=== PATIENT | male | born 1960 | race Caucasian/White ===

== ENCOUNTER → 2021-03-05 | Outpatient (CLI) | payer OTHER ==
[~2021-03-05] MED LIST: ACETAMINOPHEN500 MG PO; ADVIL200 M1 PO; CATAPRES0.2 MG PO; COLACE100 MG PO; MIRALAX17 GM PO; TRAZODONE HCL50 MG PO; ULTRAM50 MG PO; XARELTO10 MG PO; ZESTRIL30 MG PO
[2021-03-05 11:52] LABS: HEMATOCRIT 43.3 % (42.0-52.0); MCH 33.7 pg (26.0-34.0); MCHC 34.6 g/dL (28.0-37.0); MCV 97.5 fL (80.0-100.0); RBC 4.44 mil/uL (4.50-6.00); WBC 9.1 thou/uL (4.0-11.0)
[2021-03-05 11:54] LABS: URINE BLOOD NEGATIVE (Negative); URINE CLARITY CLEAR; URINE GLUCOSE-RANDOM* NEGATIVE (Negative); URINE KETONES TRACE (Negative); URINE LEUKOCYTES-REFLEX NEGATIVE (Negative); URINE NITRITE-REFLEX NEGATIVE (Negative); URINE PROTEIN (DIPSTICK) TRACE (Negative); URINE SPECIFIC GRAVITY >= 1.030 (1.005-1.035); URINE UROBILINOGEN 0.2 E.U./dl (0.2-1.0)
[2021-03-05 11:58] LABS: ICTOTEST (BILI CONFIRMATORY) Negative (Negative); URINE BILIRUBIN NEGATIVE (Negative); URINE COLOR AMBER
[2021-03-05 12:01] LABS: ALBUMIN 3.9 g/dL (3.4-5.0); CALCIUM 9.4 mg/dL (8.5-10.1); CREATININE 0.8 mg/dL (0.7-1.3); POTASSIUM 4.3 mmol/L (3.5-5.1)
[2021-03-05 12:06] LABS: INR 0.93; PROTIME 10.2 Seconds (10.5-12.1)
--- NOTE | 2021-03-05 12:18 | EKG ---
[address] [place] [address] ELECTROCARDIOGRAM REPORT Name: MYRTLE HALLMAN [facility] #: [facility]tl[facility] InstituteLesly#: [id number] Admission: 03/05/21 Attend Phys: Rusty Montgomery MD Discharge: Date of : 64 Report #: [id number] [facility] Test Date: 2021-03-05 Test Time: 11:22:29 Pat Name: MYRTLE HALLMAN Department: Room: Gender: Independent Living Advisor: Lul ARREDONDO : 1960 Requested By: Rusty Montgomery Order Number: [id number] MD: Avery Garcia Measurements Intervals [place] Rate: 69 P: 43 MI: 156 QRS: -1 QRSD: 102 T: 51 QT: 393 QTc: 421 Interpretive Statements Sinus rhythm RSR' in V1 or V2, probably normal variant No previous ECG available for comparison Electronically Signed On 03-05-2021 12:18:16 CDT by Avery Garcia [email or web address] <ELECTRONICALLY SIGNED> By: Avery Garcia MD, [facility] 03/05/21 1218 1122 21 Avery Garcia MD, FACC /EPI
== END ==
LOC: PAC 10:11
PROVIDERS: ATTEND Orthopaedic Surgery
DX: Z01.812 Encounter for preprocedural laboratory examination (principal); Z01.810 Encounter for preprocedural cardiovascular examination; M87.052 Idiopathic aseptic necrosis of left femur

== ENCOUNTER 2021-03-11 06:06 | Observation (INO) | payer OTHER ==
[~2021-03-11] VITALS: Ht 177.8 cm; Wt 106.6 kg
[~2021-03-11 06:06] MED LIST changes: -COLACE100 MG PO; -MIRALAX17 GM PO; -XARELTO10 MG PO; -ZESTRIL30 MG PO
[2021-03-11 07:24] VITALS: BP 153/75
[2021-03-11 10:58] VITALS: BP 120/74
--- NOTE | 2021-03-11 13:06 | NUR ---
ASSUMED PT CARE AT 1030 FROM PACU. PT IS ALERT & ORIENTED X4. PT HAS IV SITE ON L FA SALINE LOCKED. PT HAD L TOTAL HIP REPLACEMENT TODAY. PT HAS LURDES DRESSING ON L HIP, ICE BAG, HUSSAIN HOSES, AND SCD. FINISHED ADMISSION. PT STATED THAT HE USES CANE AND WALKER AT HOME. PT C/O OF PAIN AND GIVEN PAIN MEDICATION PER PT REQUEST. PT DENIES NAUSEA AND VOMITING DURING THE SHIFT. PT TOLERATED DIET AND MEDICATION WELL. PT ON THE BED READING BOOK. BED ON THE LOWEST POSITION, SIDE RAILS UP, CALL LIGHT WITHIN REACH. WILL CONTINUE TO MONITOR PT. FOLLOW POC.
[2021-03-11 16:19] VITALS: BP 126/82
[2021-03-11 20:14] VITALS: BP 123/63
[2021-03-11] MEDS ORDERED: ZESTRIL30 MG PO (22:35)
[2021-03-12] VITALS: BP 130/70
--- NOTE | 2021-03-12 01:03 | NUR ---
ASSESSED AT START OF SHIFT. PT A&OX4. UP WITH ASSISTX1 TO THE BATHROOM. URINAL BY BEDSIDE. IV INTACT AND FLUIDS INFUSING. OXYCODONE GIVEN FOR HIP PAIN 07/04 LURDES DRESSING AND TEDHOSE INTACT. ICE PACK PLACED FOR COMFORT. FALL PREC IN PLACE. INCENTIVE SPIROMETER ENCOURAGED. PT ON 2L OF O2. DENIES N/V. CLEAR LUNGS SOUNDS. HEMOVAC INTACT WILL CONT TO MONITOR.
[2021-03-12 05:00] LABS: HEMATOCRIT 35.9 % (42.0-52.0); HEMOGLOBIN 12.3 gm/dL (14.0-18.0); MCH 33.9 pg (26.0-34.0); MCHC 34.3 g/dL (28.0-37.0); MCV 98.8 fL (80.0-100.0); RBC 3.63 mil/uL (4.50-6.00); RDW 13.7 % (10.5-14.5); WBC 12.2 thou/uL (4.0-11.0)
[2021-03-12 07:55] VITALS: BP 113/71
[2021-03-12 08:14] LABS: CALCIUM 8.5 mg/dL (8.5-10.1); CREATININE 0.8 mg/dL (0.7-1.3); MAGNESIUM 2.1 mg/dL (1.8-2.4); POTASSIUM 3.9 mmol/L (3.5-5.1)
--- NOTE | 2021-03-12 08:16 | O ---
[facility] [address] [place] [address] OPERATIVE REPORT Name: MYRTLE HALLMAN Room #: 448-P [facility] M.Breann#: [id number] Admission: 03/11/21 Attend Phys: Rusty Montgomery MD Discharge: Date of : 64 Report #: [id number] THIS REPORT FOR: cc: Cameron Coyle MD, Michael D. MD [place], David J. MD ~ DOC #: [id number] Rusty Montgomery MD DATE OF SERVICE: 03/11/2021 PREOPERATIVE DIAGNOSES: Avascular necrosis and end-stage degenerative arthritis, left hip. POSTOPERATIVE DIAGNOSES: Avascular necrosis and end-stage degenerative arthritis, left hip. PROCEDURE: Left total hip arthroplasty. SURGEON: Rusty Montgomery MD INDICATIONS: This 60-year-old gentleman has a history of alcohol abuse and tobacco abuse. He has MRI evidence of avascular necrosis in both hips. The left shows a collapse and deformity. He has elected to go ahead with left total hip replacement. DESCRIPTION OF PROCEDURE: The patient was taken to the operating room where he was placed under general anesthesia. Prophylactic intravenous antibiotics were administered. He was turned to the right lateral decubitus position. The left hip, thigh and leg were meticulously prepped and draped. A slightly curving posterolateral skin incision was made centered over the greater trochanter. This was carried through fascia and the gluteus was spread bluntly. The short external rotators and capsule were taken down and preserved. The hip was dislocated posteriorly. Marked degenerative change with fragmentation of the head was noted consistent with AVN. Femoral neck osteotomy was performed. The canal was prepared with reamers and hand broaches using the Murray and Nephew hip system. A size 16 stem seemed to fit most appropriately. Good exposure was established at the acetabulum, which was sequentially reamed, gradually advancing to 56 mm in diameter. A Murray and Nephew Stiktite 3-hole shell was then inserted using the 56 mm diameter size. This was positioned in alignment with his true acetabulum, placing this in about 45 degrees off of vertical and about 20 degrees of anteversion. It seated nicely and appeared to be secure. Three additional cancellous screws were placed through the apical holes engaging good periacetabular bone adding to stability. A 40 mm polyethylene liner was then inserted placing the 20-degree elevated rim at the 10 o'clock posterior position. This seated nicely and appeared to be secure. The Murray and Nephew size 16 Synergy porous femoral stem was then inserted[place] [address] OPERATIVE REPORT Name: MYRTLE HALLMAN SARAH Room #: 448-P [facility] M.R.#: [id number] Admission: 03/11/21 Attend Phys: Rusty Montgomery MD Discharge: Date of : 64 Report #: [id number] 20 degrees of anteversion. It seated nicely and appeared to be secure. Trial reduction was performed and the hip was best suited for a +4 mm neck length. The hip seemed stable with good range of motion and satisfactory leg length. The permanent Murray and Nephew size 40 Oxinium head with a +4 mm neck length was selected. This was impacted onto the Alberts taper. The hip was reduced. Alignment, range of motion, stability and leg length were again assessed and felt to be satisfactory. The wound was copiously irrigated. Good hemostasis was established. Estimated blood loss was about 200 mL. A single Hemovac was left in the wound exiting through a separate stab incision. The short external rotators and capsule were repaired back to bone using #1 FiberWire sutures. The fascia was closed with multiple #1 Vicryl sutures. The deeper adipose tissues and subcutaneous tissues were closed with 0 Monocryl. The skin was closed with skin jack. A sterile dressing was applied. The patient was awakened and returned to the recovery room in good condition. Rusty Montgomery MD DJC/KDA <ELECTRONICALLY SIGNED> By: Rusty Montgomery MD 03/12/21 0816 0804 0900 Rusty Montgomery MD /nt
[2021-03-12] MEDS ORDERED: COLACE100 MG PO (11:57)
[2021-03-12] MEDS ORDERED: XARELTO10 MG PO (11:57)
[2021-03-12] MEDS ORDERED: MIRALAX17 GM PO (11:57)
--- NOTE | 2021-03-12 13:58 | NUR ---
PT ADMITTED REALATED TO LT TOTAL HIP REPLACEMENT. CM REVIEWED CHART AND SPOKE WITH CARE TEAM. CM MET WITH PT AT BEDSIDE THIS DAY. PT APPEARED TO BE A&O X4. CM ROLE INTRODUCED. PT INDICATED THAT HE RESIDES IN A HOUSE WITH HIS CAN IN [facility]. 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 PT INDICATED HE NEEDS A FWW FOR USE UPON DC. NO PREFERENCE FOR PROVIDER INDICATED. CM ORDERED FWW THROUGH [employer] AND IT WAS DELIVERED. IT IS ANTICPATED THAT PT WILL DC HOME TOMORROW Monday03/13/21. PT WANTS HOME HEALTH PT AND OT. NO PREFERANCE SENDING REFERRAL TO S HH FOR REVIEW.
[2021-03-12 15:10] VITALS: BP 128/71
--- NOTE | 2021-03-12 17:11 | NUR ---
ASSUMED PT CARE THIS AM. PT IS ALERT & ORIENTED X4. PT HAS IV SITE ON L FA SALINE LOCKED. PT IS UP WITH ASSIST X1 AND USES WALK AND GAITBELT FOR AMBULATION. PT HAS LURDES DRESSING ON L HIP, KNEE HIGH BILATERAL HUSSAIN HOSES, SCD AND ICE BAG. PT C/O OF PAIN AND GIVEN PAIN MEDICATION PER PT REQUEST. PHYSICAL THERAPY WAS WORKING WITH THE PT THIS AM AND PM. PT NOT CLEARED BY PHYSICAL THERAPY FOR DC. PT ON THE CHAIR WITH ALARM ON. WILL CONTINUE TO MONITOR PT. FOLLOW POC.
[2021-03-12 19:45] VITALS: BP 130/73
[2021-03-13 05:21] LABS: HEMATOCRIT 32.6 % (42.0-52.0); HEMOGLOBIN 11.3 gm/dL (14.0-18.0); MCHC 34.7 g/dL (28.0-37.0); MCV 98.1 fL (80.0-100.0); RBC 3.33 mil/uL (4.50-6.00); RDW 13.4 % (10.5-14.5); WBC 11.3 thou/uL (4.0-11.0)
--- NOTE | 2021-03-13 05:48 | NUR ---
RECEIVED CARE OF THIS PATIENT AT 1900. PATIENT UP IN CHAIR PART OF NIGHT. C/O PAIN, MED GIVEN. C/O IV HURTING AND WANTED IT PULLED, DISCONTINUED. DID NOT REPLACE BECAUSE GOING HOME TODAY AND GETTING NOTHING THROUGH IT. LURDES DRESSING ON L HIP. HAS TEDS ON VIJAY LOWER EXT. SLEPT MOST OF NIGHT.
[2021-03-13 08:00] VITALS: BP 125/74
[2021-03-13 15:45] VITALS: BP 139/83
--- NOTE | 2021-03-13 20:00 | NUR ---
ASSUMED PT CARE AROUND 0720. PT ALERT X ORIENTED X 4. ON ROOM AIR. 1-2 PERSON ASST WITH WALKER.PICCO DRESSING AND SCDS IN PLACE. PAIN PARTIALLY CONTROLLED BY PAIN MEDICINE. WORKED WITH PT AND OT. DC PENDING. USES URINALS AT BEDSIDE. CALL LIGHT IN REACH. WILL CALL APPROPRIATELY. FALL PRECAUTION IN PLACE. HOURLY ROUNDING DONE. SHIFT REPORT GIVEN TO [employer] ENGLISH TEACHER.
[2021-03-13 20:15] VITALS: BP 139/75
--- NOTE | 2021-03-14 03:13 | NUR ---
PT IS A/O X4 AND IS ON ROOM AIR. VSS AFEBRILE. C/O PAIN TO LEFT HIP. PRN PAIN MEDICATION GIVEN DIRECTED. DRSG TO LEFT HIP IS C/D/I WITH BLOODY DRAINAGE DRIED UNDER DRESSING. MEDICATIONS GIVEN PER MAR. PT REFUSES TO BE REPOSITIONED STATING HE MOVES HIMSELF MUCH HE CAN. FALL PRECAUTIONS, THIGH HIGH HUSSAIN HOSE, AND SCD'S ARE IN PLACE. LE ARE ELEVATED ON PILLOWS. CALL LIGHT IS WITHIN REACH.
[2021-03-14 03:15] VITALS: BP 150/94
[2021-03-14 05:14] LABS: HEMATOCRIT 35.8 % (42.0-52.0); HEMOGLOBIN 12.2 gm/dL (14.0-18.0); MCH 33.8 pg (26.0-34.0); MCV 99.4 fL (80.0-100.0); RBC 3.6 mil/uL (4.50-6.00); RDW 13.9 % (10.5-14.5); WBC 10.8 thou/uL (4.0-11.0)
[2021-03-14 07:10] VITALS: BP 142/79
[2021-03-14 13:59] VITALS: BP 142/79
== END 2021-03-14 15:12 | disposition home or self-care (01) ==
LOC: PRE → OR 06:06 → TBA 06:07 → OR 09:27 → 4S 10:18 → EDSTATUS 11:09 → OR 11:12 → PRE 11:27 → OR 16:24 → 4S 16:30
PROVIDERS: ADMIT Orthopaedic Surgery; ATTEND Orthopaedic Surgery
DX: M16.12 Unilateral primary osteoarthritis, left hip (principal); M87.052 Idiopathic aseptic necrosis of left femur; I10 Essential (primary) hypertension; E78.5 Hyperlipidemia, unspecified; E66.9 Obesity, unspecified; Z79.899 Other long term (current) drug therapy; Z87.891 Personal history of nicotine dependence
CPT/HCPCS: 50010; 50101; 50382; 50414; 51412; 53000; 53368; 56521; 56525; 56530; 57095; 62110; 62900; 70005

== ENCOUNTER → 2021-06-15 | Outpatient (CLI) | payer OTHER ==
[~2021-06-15] MED LIST changes: +COLACE100 MG PO; +MIRALAX17 GM PO; +XARELTO10 MG PO; +ZESTRIL30 MG PO
[2021-06-15 11:11] LABS: HEMATOCRIT 44.1 % (42.0-52.0); HEMOGLOBIN 14.6 gm/dL (14.0-18.0); MCH 31.4 pg (26.0-34.0); MCHC 33.1 g/dL (28.0-37.0); RBC 4.64 mil/uL (4.50-6.00); RDW 15.6 % (10.5-14.5); URINE BILIRUBIN NEGATIVE (Negative); URINE BLOOD NEGATIVE (Negative); URINE CLARITY CLEAR; URINE COLOR YELLOW; URINE GLUCOSE-RANDOM* NEGATIVE (Negative); URINE KETONES NEGATIVE (Negative); URINE LEUKOCYTES-REFLEX NEGATIVE (Negative); URINE NITRITE-REFLEX NEGATIVE (Negative); URINE PROTEIN (DIPSTICK) NEGATIVE (Negative); URINE UROBILINOGEN 0.2 E.U./dl (0.2-1.0); WBC 7.5 thou/uL (4.0-11.0)
[2021-06-15 11:22] LABS: ALBUMIN 3.8 g/dL (3.4-5.0); CALCIUM 9.3 mg/dL (8.5-10.1); CREATININE 0.9 mg/dL (0.7-1.3); POTASSIUM 4.8 mmol/L (3.5-5.1)
[2021-06-15 11:23] LABS: INR 0.94; PROTIME 10.3 Seconds (10.5-12.1)
== END ==
LOC: PAC 10:31
PROVIDERS: ATTEND Orthopaedic Surgery
DX: Z01.812 Encounter for preprocedural laboratory examination (principal)

== ENCOUNTER 2021-06-24 07:40 | Observation (INO) | payer OTHER ==
[2021-06-24] VITALS (7 sets, daily range): BP systolic 119–151; BP diastolic 66–88
[~2021-06-24] VITALS: Ht 177.8 cm; Wt 102.1 kg
--- NOTE | 2021-06-24 14:41 | NUR ---
ASSUMED PT CARE FR0M PACU AT 1315. PT IS ALERT & ORIENTED X4. PT HAS IV SITE ON LFA. PT USES WALKER. ADVANCED DIET TO REGULAR DIET FOR DINNER. PT HAS HEMOVAC, ICE PACK, HUSSAIN HOSES THIGH HIGH BILATERAL, SCD. PT IS ON 2L NC O2. LAST BM WAS THIS AM. FINISHED ADMISSION. PT ON THE BED, BED ON THE LOWEST POSITION, SIDE RAILS UP, CALL LIGHT WITHIN REACH. WILL CONTINUE TO MONITOR PT. FOLLOW POC.
--- NOTE | 2021-06-24 16:31 | NUR ---
ASSESSMENT: CM REVIEWED CHART AND SPOKE WITH PATIENT. PT IS S/P RIGHT THR. PT REPORTS THAT HE LIVES IN A HOUSE ALONE. PT REPORTS THAT HE HAS TWO STEPS TO ENTER THE HOME WITH NO STEPS ONCE INSIDE. PT REPORTS THAT HE HAS A CANE HE USES WELL A WALKER AT HOME. PT REPORTS THAT HE HAD HH IN THE PAST BUT REPORTS HE DID NOT FIND IT TOO HELPFUL AND DOES NOT FEEL ITS NEEDED AT DISCHARGE. PT REPORTS THAT HE DOES NOT CURRENTLY HAVE HH SET UP. PT REPORTS HE HAS A FRIEND THAT CAN ASSIST HIM IF NEEDED. CM DISCUSSED ROLE. PT DOES NOT ANTICIPATE HAVING ANY NEEDS. THERAPY EVALS ARE PENDING AT THIS TIME. CM WILL CONTINUE TO FOLLOW TO ASSIST NEEDED.
--- NOTE | 2021-06-25 00:57 | NUR ---
R HIP WITH LURDES DRSG WELL HEMOVAC. PUTTING OUT MODERATE AMT. VOIDING GREAT. DENIES NAUSEA. SCDS AND TEDS IN PLACE. VSS.
[2021-06-25 03:30] VITALS: BP 141/75
[2021-06-25 04:58] LABS: BASOPHILS 0.2 % (0.0-2.0); EOSINOPHILS 0.1 % (0.0-3.0); HEMATOCRIT 40.2 % (42.0-52.0); HEMOGLOBIN 13.3 gm/dL (14.0-18.0); LYMPHOCYTES 13.2 % (24.0-44.0); MCH 31.9 pg (26.0-34.0); MCHC 33.2 g/dL (28.0-37.0); MCV 96.1 fL (80.0-100.0); MONOCYTES 11.5 % (1.0-8.0); PLATELET COUNT 361 thou/uL (150-400); RBC 4.19 mil/uL (4.50-6.00); RDW 15.6 % (10.5-14.5); WBC 13.4 thou/uL (4.0-11.0)
[2021-06-25 06:18] LABS: CALCIUM 8.5 mg/dL (8.5-10.1); CREATININE 0.8 mg/dL (0.7-1.3); MAGNESIUM 1.9 mg/dL (1.8-2.4); POTASSIUM 4.1 mmol/L (3.5-5.1)
[2021-06-25 07:08] LABS: HBsAG-EMPLOYEE EXPOSURE Negative (Negative); HCV AB-EMPLOYEE EXPOSURE <0.1 (0.0-0.9)
[2021-06-25 07:24] VITALS: BP 142/73
--- NOTE | 2021-06-25 09:58 | NUR ---
PATIENT ALERT AND ORIENTED X4. UP WITH ASSIST OF ONE. C/O PAIN, MED GIVEN. HAS LURDES DRESSIG WITH TEDS AD SCD'S ON.SLEPT MOST OF NIGHT.
--- NOTE | 2021-06-25 10:53 | NUR ---
Assumed care of pt at 0700. Pt a&ox4. Dressing c/d/i. Pain controlled with prn pain medications. Hemovac drain removed per dr order. HUSSAIN blanco and SCDs in place. Up to the chair. Possible home tomorrow. Call light within reach. Fall precautions in place. Will continue to monitor.
[2021-06-25 15:46] VITALS: BP 122/65
--- NOTE | 2021-06-25 16:49 | NUR ---
SW reviewed chart. Pt is s/p right BERENICE. Discharge home is anticipated over the weekend pending pain mgmt. Pt has walker at home. No discharge needs identified at this time. SW is following to assist as needed with discharge planning.
[2021-06-25 19:40] VITALS: BP 129/60
[2021-06-26 04:37] LABS: HEMATOCRIT 37.1 % (42.0-52.0); HEMOGLOBIN 12.7 gm/dL (14.0-18.0); MCH 32.5 pg (26.0-34.0); MCHC 34.2 g/dL (28.0-37.0); MCV 94.9 fL (80.0-100.0); RBC 3.91 mil/uL (4.50-6.00); RDW 15.6 % (10.5-14.5); WBC 11.7 thou/uL (4.0-11.0)
--- NOTE | 2021-06-26 05:30 | NUR ---
ASSUMED CARE AT 1900, PT CONCERNED OF THE ROOMATES NOISE, PER ASSESSMENT PT IS SENSITIVE OF NOICE, SUGESTED NIGHT SOOTHING NOISE TO HELP, PT DECLINED OFFER, REPORTED PAIN, PRN MEDICATION ADMITTED ORDERED, NO ADVERSE REACTION NOTED, TOLARATED MEDICATION WELL WILL CONTINUE TO MONITOR PT.
[2021-06-26 08:18] VITALS: BP 147/64
--- NOTE | 2021-06-26 09:35 | NUR ---
Assumed care of pt at 0700. Pt a&ox4. Dressing c/d/i. Pain controlled with prn pain medications. Up SBA with walker and gait-belt. Pt will discharge to home today. Call light within reach. Will continue to monitor.
[2021-06-26 10:27] VITALS: BP 147/64
--- NOTE | 2021-06-28 07:40 | O ---
[facility] [place] [address] OPERATIVE REPORT Name: MYRTLE HALLMAN Room #: 446-P [facility] Greta Villafana#: [id number] Admission: 06/24/21 Attend Phys: Rusty Montgomery MD Discharge: 06/26/21 Date of : 64 Report #: [id number] THIS REPORT FOR: cc: Cameron Coyle MD, Michael D. MD [place],Rusty Reid MD ~ DATE OF SERVICE: 06/24/2021 PREOPERATIVE DIAGNOSIS: Avascular necrosis and end-stage degenerative arthritis, right hip. POSTOPERATIVE DIAGNOSIS: Avascular necrosis and end-stage degenerative arthritis, right hip. PROCEDURE: Right total hip arthroplasty. SURGEON: Rusty Montgomery MD INDICATIONS: This 60-year-old gentleman has severe degenerative arthritis of both hips with associated avascular necrosis. He previously underwent left total hip replacement with good result. He returns now for right total hip replacement. DESCRIPTION OF PROCEDURE: The patient was taken to the operating room where he was placed under general anesthesia. Prophylactic intravenous antibiotics were administered. He was turned to the left lateral decubitus position. The right hip, thigh and leg were meticulously prepped and draped. A slightly curving skin incision was made centered over the greater trochanter. This was carried through adipose tissues and fascia to expose the posterior aspect of the hip joint. The short external rotators and caps were taken down and preserved and tagged with several #1 FiberWire sutures. The hip was dislocated posteriorly. Marked degenerative change was noted with some destruction of the femoral head with obvious AVN and collapse. A femoral neck osteotomy was performed. The canal was prepared using the Murray and Nephew hip system. A size 17 Synergy stem seemed to fit most appropriately. The calcar was trimmed down at appropriate level. The trial broach was removed and attention directed to the acetabulum. Good exposure was established and the acetabulum was sequentially reamed, gradually advancing to a 56 mm reamer. A Murray and Nephew size 56 outside diameter StikTite 3-hole shell was then inserted. This was placed in alignment with his true acetabulum, positioning this in about 45 degrees off of vertical and 20 degrees of anteversion. It was impacted into place and seated nicely and appeared to be secure. In addition, 3 cancellous screws were placed through the apical holes engaging good periacetabular bone with additional fixation. A 40 mm polyethylene liner was then inserted positioning the 20-degree elevated rim at about the 10 o'clock posterior position. This also seated nicely and appeared to be secure. The permanent Murray and Nephew size [address] [address] OPERATIVE REPORT Name: MYRTLE HALLMAN Room #: 446-P [facility] Greta Villafana#: [id number] Admission: 06/24/21 Attend Phys: Rusty Montgomery MD Discharge: 06/26/21 Date of : 64 Report #: [id number] Synergy standard offset femoral stem was inserted. This was placed in about 20 degrees of anteversion. It seated nicely and appeared to be secure. A trial reduction was performed and the hip seemed best suited for a +4 mm neck length and a 40 mm head side. This resulted in satisfactory alignment, range of motion and stability. He did have moderately tight anterior capsule and also a mild knee flexion contracture, probably related to his chronic degenerative change and limited movement in the past. Nevertheless, the 4 mm neck length seemed to allow adequate movement and stability and seemed symmetric with the opposite side. Leg lengths seemed satisfactory. The trial head was removed and the permanent Oxinium 40 mm head with a +4 mm neck length was selected. This was impacted on the Alberts taper and seated nicely and appeared to be secure. The hip was reduced. Alignment, range of motion, stability and leg length were assessed and felt to be satisfactory. The short external rotators with capsule were then repaired back to bone using #1 FiberWire sutures passed through drill holes in bone. A single Hemovac was left in the wound exiting through a separate stab incision. The fascia was closed with multiple #1 Vicryl sutures. The deeper adipose tissues and subcutaneous tissues were closed with 0 Monocryl. The skin was closed with skin jack. A sterile dressing was applied. The patient was awakened and returned to recovery room in good condition. <ELECTRONICALLY SIGNED> By: Rusty Montgomery MD 06/28/21 0740 1042 1054 Rusty Montgomery MD /nt
== END 2021-06-26 11:34 | disposition home or self-care (01) ==
LOC: OR 07:40 → TBA 09:45 → OR 10:42 → 4S 13:15 → OR 14:41 → 4S 15:34 → OR 15:34 → 4S 06-26 11:34
PROVIDERS: Nurse Practitioner; ADMIT Orthopaedic Surgery; ATTEND Orthopaedic Surgery
DX: M87.351 Other secondary osteonecrosis, right femur (principal); M87.352 Other secondary osteonecrosis, left femur; M16.11 Unilateral primary osteoarthritis, right hip; Z20.822 Contact with and (suspected) exposure to COVID-19; I10 Essential (primary) hypertension; L40.9 Psoriasis, unspecified; E66.9 Obesity, unspecified; Z79.899 Other long term (current) drug therapy; Z87.891 Personal history of nicotine dependence; Z23 Encounter for immunization; Z96.642 Presence of left artificial hip joint
CPT/HCPCS: 50010; 50101; 50382; 50414; 51412; 53000; 53368; 56521; 56525; 56530; 57095; 57103; 62110; 62900; 70005